=== PATIENT | male | born 1965 | race Caucasian/White ===

== ENCOUNTER 2017-05-26 09:42 | Emergency (ER) | payer OTHER ==
[2017-05-26 10:54] LABS: BASOPHIL 0.3 % (0-2); EOSINOPHIL 1.2 % (0-5); HCT 45.3 % (42.0-52.0); HGB 16.3 g/dl (13.2-18.0); LYMPHOCYTE 11.3 % (15-48); MCH 33.5 pg (25.0-31.0); MCV 93.2 fL (78.0-100.0); MONOCYTE 11.7 % (0-12); MPV 8.9 fL (6.0-9.5); NEUTROPHIL 75.5 % (41-80); PLT 191 K/uL (150-400); RBC 4.86 M/uL (4.70-6.00); WBC 6.6 K/uL (4.0-10.5)
[2017-05-26 11:00] LABS: CREATININE 0.7 mg/dL (0.7-1.2); POTASSIUM 3.9 mmol/L (3.5-5.1)
== END 2017-05-26 11:27 | disposition home or self-care (01) ==
LOC: FER 09:42
PROVIDERS: Internal Medicine
DX: B27.90 Infectious mononucleosis, unspecified without complication (principal)
CPT/HCPCS: 36415; 80048; 85025; 86308; 87450; 99283